=== PATIENT | male | born 1965 | race African-American/Black ===

== ENCOUNTER 2023-03-30 11:21 | Inpatient (IN) | payer MEDICAID, OTHER ==
[~2023-03-30] VITALS: Ht 177.8 cm; Wt 89.9 kg
[2023-03-30] MEDS ORDERED: cloNIDine HCL 0.1 MG TAB PO ONE (11:30)
[2023-03-30] MEDS: SODIUM CHLORIDE 0.9% 1,000 ML IV ONE (11:47)
[2023-03-30 12:19] LABS: Hematocrit 41.3 % (41.0-53.0); Hemoglobin 13.9 g/dL (13.5-17.5); Mean Corpuscular Hgb Conc. 33.6 g/dL (32.0-36.0); Mean Corpuscular Volume 83.5 fL (80.0-100.0); Red Blood Cells 4.95 10^6/uL (4.5-5.90); Red Cell Distribution Width 15.7 % (11.8-14.3); White Blood Cell 5.6 10^3/uL (4.4-10.8)
[2023-03-30 12:31] LABS: Chloride 105 mmol/L (98-107); Potassium 3.4 mmol/L (3.5-5.1); Sodium 141 mmol/L (136-145)
[2023-03-30 12:32] LABS: Anion Gap 8 (5-15); Calcium 9.6 mg/dL (8.5-10.1); Carbon Dioxide 28 mmol/L (20-30)
[2023-03-30 12:37] LABS: BUN/Creatinine Ratio 10.2 (10.0-20.0); Blood Urea Nitrogen 10 mg/dL (9-23); Glucose 136 mg/dL (74-106)
[2023-03-30 12:43] LABS: Band Neutrophils % (manual) 0; Basophils % (manual) 0 (0.0-2.0); Blast Cells 0; Metamyelocytes % 0; Myelocytes % 0; Promyelocytes % 0; Reactive Lymphocytes 0
[2023-03-30 12:44] LABS: Eosinophils % (manual) 1 (0-7); Lymphocytes % (manual) 55 (10.0-50.0); Monocytes % (manual) 6 (0-12)
[2023-03-30 12:45] LABS: Platelet Estimate Adequate; RBC Morphology Normal
[2023-03-30] MEDS ORDERED: DOCUSATE SOD 100 MG CAP PO PRN (15:15)
[2023-03-30] MEDS ORDERED: ACETAMINOPHEN 325 MG TAB PO PRN (15:15)
[2023-03-30] MEDS ORDERED: ONDANSETRON HCL 4 MG/2 ML VIAL IV PRN (15:15)
[2023-03-30] MEDS: LACTATED RINGER'S 1,000 ML IV ONE (15:30)
[2023-03-30 20:00] VITALS: PULSE 58
[2023-03-30 20:12] VITALS: PULSE 87; RESP 18; O2SAT 98
[2023-03-30 20:14] VITALS: BP 156/83; PULSE 62; RESP 17; O2SAT 100
[2023-03-30] MEDS ORDERED: CARI-277 PO (21:02)
[2023-03-30] MEDS ORDERED: HYDR-4227 PO (21:02)
[2023-03-30] MEDS ORDERED: HYDR-4798 PO (21:02)
[2023-03-30] MEDS ORDERED: AMLO1TAB22 PO (21:02)
[2023-03-30] MEDS ORDERED: LISI-275 PO (21:02)
[2023-03-30] MEDS: HYDROcodone-ACET 5/325MG TAB PO PRN (21:44)
[2023-03-30] MEDS: SODIUM CHLOR 0.9% PF (SALINE LOCK) 10ML VIAL/SYR IV SCH (21:45)
[2023-03-30 22:00] VITALS: BP 145/78; PULSE 59; RESP 17; TEMP 98.5; O2SAT 97
[2023-03-31 05:00] VITALS: BP 150/64; PULSE 61; RESP 16; TEMP 98.1; O2SAT 96
[2023-03-31 08:00] VITALS: PULSE 67; PULSE 72; RESP 18; O2SAT 98
[2023-03-31 09:00] VITALS: BP 157/93; PULSE 67; RESP 18; TEMP 98; O2SAT 98
[2023-03-31] MEDS: ENOXAPARIN SOD 40 MG/0.4 ML SYRINGE SC SCH (09:14)
[2023-03-31] MEDS: FAMOTIDINE 20 MG TAB PO SCH (09:14)
[2023-03-31 13:00] VITALS: BP 143/79; PULSE 60; RESP 20; TEMP 97.8; O2SAT 96
[2023-03-31 16:44] VITALS: BP 150/79; PULSE 53; RESP 18; TEMP 98.2; O2SAT 98
[2023-03-31] MEDS: SODIUM CHLORIDE 0.9% 1,000 ML IV SCH (17:38)
[2023-03-31 20:00] VITALS: BP 152/86; PULSE 58; PULSE 61; RESP 22; TEMP 97.8; O2SAT 98
[2023-04-01] MEDS: hydrALAZINE HCL 20 MG/ML VL IV PRN (00:02)
[2023-04-01 05:00] VITALS: BP 150/77; PULSE 54; RESP 20; TEMP 98.2; O2SAT 95
[2023-04-01 06:45] LABS: Basophils # (auto) 0 10 ^3/uL (0-0.2); Basophils % (auto) 0.8 % (0.0-2.0); Eosinophils # (auto) 0.1 10 ^3/uL (0-0.8); Eosinophils % (auto) 2.3 % (0.0-7.0); Lymphocytes % (auto) 54.2 % (10.0-50.0); Mean Corpuscular Hemoglobin 27.1 pg (28.0-32.0); Mean Corpuscular Hgb Conc. 32.5 g/dL (32.0-36.0); Mean Corpuscular Volume 83.5 fL (80.0-100.0); Monocytes # (auto) 0.4 10 ^3/uL (0-1.3); Monocytes % (auto) 10.4 % (0.0-12.0); Neutrophils # (auto) 1.2 10 ^3/uL (1.6-8.6); Neutrophils % (auto) 32.3 % (37.0-80.0); Red Cell Distribution Width 15.9 % (11.8-14.3); White Blood Cell 3.7 10^3/uL (4.4-10.8)
[2023-04-01 07:18] LABS: Alanine Aminotransferase 10 U/L (7-40); Albumin 4.1 g/dL (3.2-4.8); Alkaline Phosphatase 67 U/L (46-116); Anion Gap 8 (5-15); Aspartate Aminotransferase 11 U/L (13-40); BUN/Creatinine Ratio 13.3 (10.0-20.0); Blood Urea Nitrogen 10 mg/dL (9-23); Calcium 9.4 mg/dL (8.5-10.1); Carbon Dioxide 27 mmol/L (20-30); Chloride 107 mmol/L (98-107); Glucose 84 mg/dL (74-106); Potassium 3.3 mmol/L (3.5-5.1); Sodium 142 mmol/L (136-145)
[2023-04-01 07:19] LABS: Bilirubin, Total 0.4 mg/dL (0.2-1.0)
[2023-04-01 07:20] LABS: Total Protein 7.3 g/dL (5.7-8.2)
[2023-04-01 08:00] VITALS: PULSE 56; PULSE 58; RESP 15; O2SAT 94
[2023-04-01 08:18] VITALS: BP 152/82; PULSE 56; RESP 15; TEMP 98; O2SAT 94
[2023-04-01] MEDS: ASPirin 81 mg TAB PO SCH (10:03)
[2023-04-01] MEDS: POTASSIUM CHL 20 Meq TABLET PO ONE (10:04)
[2023-04-01 13:12] VITALS: BP 122/68; PULSE 74; RESP 16; TEMP 97.5; O2SAT 94
[2023-04-01 14:44] VITALS: BP 122/68; PULSE 74; RESP 16; TEMP 97.5; O2SAT 94
== END 2023-04-01 15:10 | disposition home or self-care (01) | DRG 204 ==
LOC: ER 11:21 → TELE 15:06 → TELE-WESTW 18:33
PROVIDERS: ADMIT Internal Medicine; ATTEND Internal Medicine
DX: R55 Syncope and collapse (principal); E11.9 Type 2 diabetes mellitus without complications; E87.6 Hypokalemia; E78.5 Hyperlipidemia, unspecified; I10 Essential (primary) hypertension; F17.210 Nicotine dependence, cigarettes, uncomplicated; Z83.3 Family history of diabetes mellitus
CPT/HCPCS: 36415; 70450; 80048; 80053; 84484; 85007; 85025; 85027; 93005; 93306; 93458; 93886; 97110; 97116; 97163; 99291; G0378